=== PATIENT | male | born 1945 | race Caucasian/White ===

== ENCOUNTER → 2017-04-05 | Outpatient (CLI) | payer MEDICARE | END | disposition home or self-care (01) | LOC: PCVCCLINIC 09:00 | PROVIDERS: ATTEND Internal Medicine Cardiovascular Disease | DX: I25.10 Atherosclerotic heart disease of native coronary artery without angina pectoris (principal); I47.2 Ventricular tachycardia; I10 Essential (primary) hypertension; E78.00 Pure hypercholesterolemia, unspecified; Z79.82 Long term (current) use of aspirin; Z79.899 Other long term (current) drug therapy; Z87.891 Personal history of nicotine dependence | CPT/HCPCS: 93005; G0463 ==

== ENCOUNTER → 2017-10-03 | Outpatient (CLI) | payer MEDICARE ==
[~2017-10-03] MED LIST: REGADENOSON 0.4 MG/5 ML DISP.SYRIN. IV
== END | disposition home or self-care (01) ==
LOC: PCVCIMAG 11:49
DX: I25.10 Atherosclerotic heart disease of native coronary artery without angina pectoris (principal); I47.2 Ventricular tachycardia; I10 Essential (primary) hypertension; E78.00 Pure hypercholesterolemia, unspecified; Z79.899 Other long term (current) drug therapy; Z79.82 Long term (current) use of aspirin; Z87.891 Personal history of nicotine dependence
CPT/HCPCS: 36415; 78452; 93017; A9500; G0463; J2785

== ENCOUNTER → 2019-01-02 | Outpatient (CLI) | payer MEDICARE | END | disposition home or self-care (01) | LOC: PCVCCLINIC 09:20 | PROVIDERS: ATTEND Internal Medicine Cardiovascular Disease | DX: I47.2 Ventricular tachycardia (principal); I48.91 Unspecified atrial fibrillation; I25.10 Atherosclerotic heart disease of native coronary artery without angina pectoris; M10.9 Gout, unspecified; E78.5 Hyperlipidemia, unspecified; I10 Essential (primary) hypertension; G47.30 Sleep apnea, unspecified; Z95.810 Presence of automatic (implantable) cardiac defibrillator; Z87.891 Personal history of nicotine dependence | CPT/HCPCS: 93282 ==

== ENCOUNTER → 2019-04-11 | Outpatient (CLI) | payer MEDICARE ==
--- NOTE | 2019-04-11 16:38 | PCVCIMAG ---
APPROVED REPORT Study performed: 04/11/2019 08:31:35 EXAM: Comprehensive 2D, Doppler, and color-flow Echocardiogram Patient Location: Echo lab Room #: 2Status: routine BSA: 2.04 HR: 55 bpmBP: 132/76 mmHg Rhythm: Bradycardia Other Information Study Quality: Good Risk Factors: Cardiac Risk Factors: HTN, Hyperlipidemia Indications Pacemaker Hypertension/HDD HX: V Tach 2D Dimensions IVSd: 11.53 (7-11mm)LVOT Diam: 21.54 (18-24mm) LVDd: 55.23 mm PWd: 12.29 (7-11mm)Ascending Ao: 34.29 (22-36mm) LVDs: 40.30 (25-40mm) Left Atrium: 37.32 (27-40mm) Aortic Root: 29.24 mm LV Single Plane 4CH: 69.04 % LV Single Plane 2CH: 72.07 % Biplane EF: 71.7 % Volumes Left Atrial Volume (Systole) Single Plane 4CH: 72.65 mLSingle Plane 2CH: 49.13 mL Biplane LA Volume: 60.00 mLLA ESV Index: 29.00 mL/m2 Aortic Valve AoV Peak Kenny.: 1.23 m/s AO Peak Gr.: 6.03 mmHgLVOT Max P.76 mmHg LVOT Max V: 0.97 m/s JESSIKA Vmax: 2.86 cm2 Mitral Valve E/A Ratio: 1.1 MV Decel. Time: 219.91 ms MV E Max Kenny.: 0.65 m/s MV A Kenny.: 0.57 m/s IVRT: 96.89 ms TDI E/Lateral E': 10.83E/Medial E': 10.83 Medial E' Kenny.: 0.06 m/s Lateral E' Kenny.: 0.06 m/s Pulmonary Valve PV Peak Kenny.: 0.74 m/sPV Peak Gr.: 2.17 mmHg Pulmonary Vein P Vein S: 0.56 m/sP Vein A: 0.30 m/s P Vein D: 0.58 m/sP Vein A Dur.: 107.3 msec P Vein S/D Ratio: 0.97 Tricuspid Valve TR Peak Kenny.: 2.70 m/s TR Peak Gr.: 29.27 mmHg TV Vmax: 0.59 m/sPA Pressure: 36.00 mmHg Left Ventricle The left ventricle is normal size. There is normal LV segmental wall motion. There is normal left ventricular wall thickness. Left ventricular systolic function is normal. The left ventricular ejection fraction is within the normal range. LVEF is >70%. The left ventricular diastolic function is normal. Right Ventricle The right ventricle is normal size. The right ventricular systolic function is normal. Pacemaker lead is present in the right ventricle. Atria The left atrium size is normal. Pacemaker lead is present in the right atrium. Aortic Valve Aortic valve is trileaflet. The aortic valve is normal in structure and function. No aortic regurgitation is present. There is no aortic valvular stenosis. Mitral Valve The mitral valve is normal in structure. There is no mitral valve regurgitation noted. No evidence of mitral valve stenosis. Tricuspid Valve The tricuspid valve is normal in structure. Trace tricuspid regurgitation with a PA pressure of 36 mmHg. Mild pulmonary hypertension. Pulmonic Valve The pulmonary valve is normal in structure. There is no pulmonic valvular regurgitation. Great Vessels The aortic root is normal in size. The ascending aorta is normal in size. Aortic arch is normal in caliber. IVC is normal in size and collapses >50% with inspiration. Pericardium There is no pericardial effusion. There is no pleural effusion. <Conclusion> The left ventricle is normal size. LVEF is >70%. The right ventricle is normal size. Pacemaker lead is present in the right ventricle. Pacemaker lead is present in the right atrium. Aortic valve is trileaflet. The aortic valve is normal in structure and function. The mitral valve is normal in structure. The pulmonary valve is normal in structure. There is no pericardial effusion.
== END | disposition home or self-care (01) ==
LOC: PCVCIMAG 08:33
PROVIDERS: ATTEND Internal Medicine Cardiovascular Disease
DX: I25.10 Atherosclerotic heart disease of native coronary artery without angina pectoris (principal); E78.5 Hyperlipidemia, unspecified; I10 Essential (primary) hypertension; Z95.0 Presence of cardiac pacemaker
CPT/HCPCS: 93306